=== PATIENT | male | born 1950 | race Caucasian/White ===

== ENCOUNTER 2021-07-19 03:05 | Observation (INO) | payer MEDICARE, OTHER ==
[~2021-07-19] VITALS: Ht 177.8 cm; Wt 95.7 kg
[2021-07-19 03:58] LABS: HEMOGLOBIN 12.6 gm/dl (14.0-17.5); RED BLOOD COUNT 4.13 M/UL (4.20-5.50); WHITE BLOOD COUNT 7.1 K/UL (4.5-11.0)
[2021-07-19 04:27] LABS: BUN/CREATININE RATIO 22 (0-10)
[2021-07-19] MEDS ORDERED: ELIQUIS5 MG PO (14:39)
[2021-07-19] MEDS ORDERED: ATORVASTATIN CA80 MG PO (14:39)
[2021-07-19] MEDS ORDERED: CLOPIDOGREL75 MG PO (14:40)
[2021-07-19] MEDS ORDERED: CELECOXIB200 MG PO (14:40)
[2021-07-19] MEDS ORDERED: BUPROPION HCL200 MG PO (14:40)
[2021-07-19] MEDS ORDERED: LOPRESSOR 25 MG25 MG PO (14:40)
[2021-07-19] MEDS ORDERED: BUPROPION HCL100 M1 PO (14:41)
[2021-07-19] MEDS ORDERED: DOXAZOSIN MESYLA1 MG PO (14:41)
[2021-07-19] MEDS ORDERED: AMLODIPINE BESYL5 MG PO (14:41)
[2021-07-19] MEDS ORDERED: NITROGLYCERIN0.4 MG SL (14:42)
[2021-07-20] MEDS ORDERED: K-TAB ER10 MEQ PO (11:09)
== END 2021-07-20 14:10 | disposition home or self-care (01) ==
LOC: ER1 03:05 → CDU 08:13 → MED SURG 4 08:13 → CDU 08:13 → MED SURG 4 14:26
PROVIDERS: Family Medicine; ADMIT Internal Medicine
DX: R07.89 Other chest pain (principal); R00.1 Bradycardia, unspecified; E87.6 Hypokalemia; I48.0 Paroxysmal atrial fibrillation; I25.10 Atherosclerotic heart disease of native coronary artery without angina pectoris; I10 Essential (primary) hypertension; E78.5 Hyperlipidemia, unspecified; N40.0 Benign prostatic hyperplasia without lower urinary tract symptoms; M51.36 Other intervertebral disc degeneration, lumbar region; Z20.822 Contact with and (suspected) exposure to COVID-19; Z95.818 Presence of other cardiac implants and grafts; Z85.46 Personal history of malignant neoplasm of prostate; Z86.73 Personal history of transient ischemic attack (TIA), and cerebral infarction without residual deficits; Z79.01 Long term (current) use of anticoagulants; Z79.82 Long term (current) use of aspirin; Z79.899 Other long term (current) drug therapy; Z88.0 Allergy status to penicillin; Z90.49 Acquired absence of other specified parts of digestive tract; Z82.49 Family history of ischemic heart disease and other diseases of the circulatory system
CPT/HCPCS: ECHO; 70450; 71045; 80053; 82550; 82553; 83874; 83880; 84132; 84484; 85025; 85379; 93306; G0378; J7030; U0002